=== PATIENT | male | born 1970 | race Caucasian/White ===

== ENCOUNTER 2016-03-31 13:12 | Emergency (ER) | payer SELFPAY ==
[~2016-03-31] VITALS: Ht 185.4 cm; Wt 125.0 kg
[~2016-03-31 13:12] MED LIST changes: -ASP81CT PO; -FAMO-119 PO; -FRSM40T PO; -GLIP5TAB13 PO; -MAG AL; -MAG360OR57 PO; -METF850T2 PO; -METO25TA60 PO; -OMEP20TA33 PO; -POTA-57 PO; -POTA20TA15 PO; -SPRN25T PO; -SULF1TAB35 PO
[2016-03-31] MEDS ORDERED: SODIUM CHLORIDE FLUSH 10 ML SYR IV PRN (13:25)
[2016-03-31] MEDS ORDERED: SODIUM CHLORIDE 250 ML IV PRN (13:25)
[2016-03-31] MEDS ORDERED: SODIUM CHLORIDE FLUSH 3 ML SYR IV PRN (13:25)
[2016-03-31] MEDS ORDERED: ASPIRIN 81 MG CHEW (CHILDREN'S ASA) PO ONE (13:25)
[2016-03-31 13:34] VITALS: BP 117/86
[2016-03-31 13:37] LABS: BASOPHILS % (AUTO) 1 % (0-2); EOSINOPHILS # (AUTO) 0.1 10^3uL; EOSINOPHILS % (AUTO) 1 % (0-4); LYMPHOCYTES # (AUTO) 1.7 X10^3; MEAN CORPUSCULAR HEMOGLOBIN 28.8 PG (26.0-34.0); MEAN CORPUSCULAR VOLUME 87 FL (80-100); MEAN PLATELET VOLUME 10.4 FL (6.0-9.5); MONOCYTES # (AUTO) 0.9 X10^3; MONOCYTES % (AUTO) 9 % (3-11); NEUTROPHILS # (AUTO) 6.6 X10^3; NEUTROPHILS % (AUTO) 70 % (51-67); PLATELET COUNT 310 10^3uL (150-450); WHITE BLOOD COUNT 9.37 10^3uL (4.0-11.0)
[2016-03-31 13:48] LABS: ALBUMIN 3.4 g/dL (3.4-5.0); ALKALINE PHOSPHATASE 193 U/L (38-126); ANION GAP 14.8 MEQ/L (3-15); BUN/CREATININE RATIO 17 (10-20); CALCULATED IONIZED CALCIUM 3.8 mg/dL (3.8-4.6); CREATINE KINASE 84 U/L (55-170); MAGNESIUM* 1.8 mg/dL (1.6-2.3); TOTAL PROTEIN 6.8 g/dL (6.4-8.5)
[2016-03-31] MEDS ORDERED: METO25TA60 PO (13:51)
[2016-03-31] MEDS ORDERED: GLIP5TAB13 PO (13:51)
[2016-03-31 14:41] LABS: AMPHETAMINE SCREEN, URINE Negative (Negative); CANNABINOID SCREEN, URINE Positive (Negative); METHAMPHETAMINE SCREEN URINE S NEGATIVE (NEGATIVE); OPIATE SCREEN URINE Negative (Negative)
[2016-03-31 14:42] LABS: PROPOXYPHENE STAT NEGATIVE (NEGATIVE)
--- NOTE | 2016-03-31 15:01 | Diagnostic Imaging Report ---
INDICATION: Shortness of breath. COMPARISON: None available. TECHNIQUE: Single frontal radiograph of the chest dated March 31, 2016. FINDINGS: The cardiac silhouette is significantly enlarged. There is, however, no significant pulmonary vascular congestion. The lungs are clear of focal pulmonary opacity. No pleural effusion. No pneumothorax. No acute osseous abnormality. IMPRESSION: Cardiomegaly without overt congestive heart failure or additional superimposed acute cardiopulmonary abnormality. Dictated by: Dictated on workstation # [id number]
--- NOTE | 2016-03-31 16:06 | Diagnostic Imaging Report ---
PROCEDURE: CT angiography of the chest with contrast. TECHNIQUE: Multiple contiguous axial images were obtained through the chest after uneventful bolus administration of intravenous contrast. Reconstructed CTA MIP acquisitions were also performed. INDICATION: Shortness of breath. COMPARISON: None. FINDINGS: There is mild cardiac enlargement without pericardial effusion. There is no pulmonary embolism or obvious acute aortic pathology. There is a small pleural-based nodule in the left upper lobe, measuring approximately 12 mm. This could be inflammatory or neoplastic. The remainder of the left lung is clear. There is a moderate-sized right-sided effusion with dependent atelectasis. No lymphadenopathy is seen. There is upper quadrant abdominal ascites, bilaterally. This is incompletely evaluated. Osseous structures are grossly unremarkable. IMPRESSION: 1. No pulmonary embolism identified. 2. Pleural-based nodule in the left upper lobe. Recommend three month followup. 3. Large right pleural effusion. 4. Partially visualized upper quadrant abdominal ascites. Dictated by: Dictated on workstation # [id number]
[2016-03-31] MEDS ORDERED: FUROSEMIDE 40 MG/4 ML (LASIX) VIAL IV ONE (17:15)
[2016-03-31] MEDS ORDERED: FRSM40T PO (18:22)
[2016-03-31] MEDS ORDERED: POTA-57 PO (18:22)
--- NOTE | 2016-03-31 19:00 | NUR ---
Law Enforcement here for pt, took pt out in handcuffs.
[2016-04-02] MEDS ORDERED: MAG AL (22:19)
[2016-04-02] MEDS ORDERED: POTA20TA15 PO (22:19)
[2016-04-02] MEDS ORDERED: FURO40TA4 PO (22:19)
[2016-04-02] MEDS ORDERED: OMEP20TA33 PO (22:19)
[2016-04-02] MEDS ORDERED: FAMO-119 PO (22:19)
[2016-04-03] MEDS ORDERED: MAG360OR57 PO (14:56)
[2016-04-03] MEDS ORDERED: METF850T2 PO (14:56)
[2016-04-08] MEDS ORDERED: ASP81CT PO (11:58)
[2016-04-08] MEDS ORDERED: SPRN25T PO (11:58)
[2016-04-08] MEDS ORDERED: GLIP5TAB13 PO (11:58)
[2016-04-08] MEDS ORDERED: FURO40TA4 PO (11:58)
[2016-04-08] MEDS ORDERED: POTA20TA15 PO (12:35)
[2016-04-08] MEDS ORDERED: METF850T2 PO (12:35)
[2016-04-08] MEDS ORDERED: SULF1TAB35 PO (12:35)
[2016-04-08] MEDS ORDERED: LISI-594 PO (12:35)
== END 2016-03-31 19:00 | disposition home or self-care (01) ==
LOC: EDBD 13:12 → EDUNIT# 13:12 → ED 13:37
DX: I50.9 Heart failure, unspecified (principal)
CPT/HCPCS: 36415; 71010; 71275; 80053; 80307; 80320; 82550; 82553; 83735; 83880; 84484; 85025; 85379; 85610; 85730; 86140; 93005; 96374; 99285; J1940; Q9967; 99284

== ENCOUNTER → 2016-03-31 | Outpatient (CLI) | payer SELFPAY ==
[~2016-03-31] MED LIST: ASP81CT PO; ASPI-345 PO; CARV6.25 PO; ENOX150D SQ; FAMO-119 PO; FRSM40T PO; FURO40TA4 PO; GLIP5TAB13 PO; LISI-594 PO; MAG AL; MAG360OR57 PO; METF850T2 PO; METO25TA60 PO; NFMET1000 PO; OMEP20TA33 PO; POTA-57 PO; POTA20TA15 PO; SPRN25T PO; SULF1TAB35 PO; WARF4TAB PO; [UNRECOGNIZED DRUG - CODE] PO
== END ==
LOC: EMS 13:10
PROVIDERS: ATTEND Emergency Medicine
DX: I50.9 Heart failure, unspecified (principal); R06.00 Dyspnea, unspecified

== ENCOUNTER 2016-04-02 17:18 | Inpatient (IN) | payer SELFPAY ==
[~2016-04-02] VITALS: Ht 185.4 cm; Wt 118.2 kg
[2016-04-02] MEDS ORDERED: ONDANSETRON 4 MG (ZOFRAN) ORAL DISSOLVE TAB PO ONE (17:35)
[2016-04-02] MEDS ORDERED: GI COCKTAIL 55 ML UDC PO ONE (17:35)
[2016-04-02] MEDS ORDERED: MAG HYDROX/AL HYDROX/SIMETH 400-400-40/5 ML (MAG-AL PLUS XS) 30 ML UDC ONE (17:41)
[2016-04-02] MEDS ORDERED: BELLADONNA/PHENOBARBITAL ELIXIR (DONNATAL) 10 ML UDC ONE (17:41)
[2016-04-02] MEDS ORDERED: LIDOCAINE 2% VISCOUS 20ML UDC PO ONE (17:41)
[2016-04-02 17:56] LABS: BASOPHILS % (AUTO) 0 % (0-2); EOSINOPHILS # (AUTO) 0.1 10^3uL; EOSINOPHILS % (AUTO) 1 % (0-4); LYMPHOCYTES # (AUTO) 1.4 X10^3; MEAN CORPUSCULAR HEMOGLOBIN 28.9 PG (26.0-34.0); MEAN CORPUSCULAR HGB CONC 33.5 g/dL (31.0-37.0); MEAN CORPUSCULAR VOLUME 86 FL (80-100); MEAN PLATELET VOLUME 10.4 FL (6.0-9.5); MONOCYTES % (AUTO) 10 % (3-11); NEUTROPHILS # (AUTO) 7.9 X10^3; NEUTROPHILS % (AUTO) 76 % (51-67); PLATELET COUNT 309 10^3uL (150-450); WHITE BLOOD COUNT 10.46 10^3uL (4.0-11.0)
[2016-04-02 18:09] LABS: ALBUMIN 3.4 g/dL (3.4-5.0); ANION GAP 15.5 MEQ/L (3-15); CALCULATED IONIZED CALCIUM 3.8 mg/dL (3.8-4.6); TOTAL PROTEIN 6.7 g/dL (6.4-8.5)
[2016-04-02] MEDS ORDERED: HYDROmorphone 1 MG/ML (DILAUDID) SYRINGE IV ONE (19:55)
[2016-04-02] MEDS ORDERED: meTOprolol TARTRATE 25 MG (LOPRESSOR) TABLET PO SCH (21:20)
[2016-04-02 21:36] VITALS: BP 113/81
[2016-04-02] MEDS ORDERED: DEXTROSE 50% 25 GM/50 ML SYRINGE IV PRN (22:50)
[2016-04-02] MEDS ORDERED: FUROSEMIDE 40 MG/4 ML (LASIX) VIAL IV ONE (22:50)
[2016-04-02] MEDS ORDERED: GLUCAGON EMERGENCY 1 MG/KIT IM PRN (22:50)
[2016-04-02] MEDS ORDERED: DEXTROSE ORAL GEL (GLUTOSE 40%) 15 GM TUBE PO PRN (22:50)
[2016-04-02] MEDS: SODIUM CHLORIDE FLUSH 10 ML SYR IV PRN ×2 (23:40→23:47)
[2016-04-02 23:57] VITALS: BP 113/81
[2016-04-03] MEDS: SODIUM CHLORIDE FLUSH 10 ML SYR IV PRN ×3 (00:03→04:20)
[2016-04-03] MEDS: HYDROmorphone 1 MG/ML (DILAUDID) SYRINGE IV PRN ×3 (00:03→14:27)
[2016-04-03] MEDS: ONDANSETRON 2 MG/ML (Z0FRAN) 2 ML VIAL IV PRN ×2 (04:06→13:10)
[2016-04-03 04:11] VITALS: BP 102/72
[2016-04-03 06:28] LABS: BASOPHILS % (AUTO) 0 % (0-2); EOSINOPHILS # (AUTO) 0.1 10^3uL; EOSINOPHILS % (AUTO) 1 % (0-4); LYMPHOCYTES # (AUTO) 1.3 X10^3; MEAN CORPUSCULAR HEMOGLOBIN 28.8 PG (26.0-34.0); MEAN CORPUSCULAR HGB CONC 33.2 g/dL (31.0-37.0); MEAN CORPUSCULAR VOLUME 87 FL (80-100); MEAN PLATELET VOLUME 10.7 FL (6.0-9.5); MONOCYTES # (AUTO) 0.9 X10^3; MONOCYTES % (AUTO) 12 % (3-11); NEUTROPHILS # (AUTO) 5.6 X10^3; NEUTROPHILS % (AUTO) 70 % (51-67); PLATELET COUNT 254 10^3uL (150-450)
[2016-04-03 06:45] LABS: ANION GAP 14.3 MEQ/L (3-15); CALCULATED IONIZED CALCIUM 3.7 mg/dL (3.8-4.6); TOTAL PROTEIN 6.3 g/dL (6.4-8.5)
[2016-04-03] MEDS: SUCRALFATE 1 GM (CARAFATE) TAB PO SCH ×4 (06:47→20:21)
[2016-04-03] MEDS: INSULIN LISPRO 1 UNIT/0.01 ML (HUMALOG) DOSE SC SCH ×4 (06:47→21:00)
[2016-04-03 07:51] VITALS: BP 103/73
[2016-04-03] MEDS: meTOprolol TARTRATE 25 MG (LOPRESSOR) TABLET PO SCH ×2 (08:10→18:04)
[2016-04-03] MEDS: metFORMIN 1000 MG (GLUCOPHAGE) TABLET PO SCH ×2 (08:11→18:04)
[2016-04-03] MEDS: glipiZIDE 5 MG (GLUCOTROL) TAB PO SCH ×2 (08:27→18:04)
[2016-04-03] MEDS ORDERED: FONDAPARINUX SODIUM 2.5 MG/0.5 ML SC SCH (09:00)
[2016-04-03] MEDS: SODIUM CHLORIDE FLUSH 3 ML SYR IV PRN ×4 (09:22→18:04)
[2016-04-03] MEDS: ENOXAPARIN 40 MG/0.4 ML (LOVENOX) SYR SC SCH (09:22)
[2016-04-03] MEDS: lisINopril 5 MG (PRINIVIL) TABLET PO SCH (09:22)
[2016-04-03] MEDS: PANTOPRAZOLE 40 MG (PROTONIX) TAB PO SCH (09:22)
[2016-04-03 11:40] VITALS: BP 107/70
[2016-04-03] MEDS ORDERED: FUROSEMIDE 100 MG/10 ML (LASIX) VIAL IV ONE (14:00)
[2016-04-03] MEDS ORDERED: METOLAZONE 2.5 MG (ZAROXOLYN) TAB PO ONE (14:00)
[2016-04-03 14:05] LABS: LIPASE* 55 U/L (23-300)
[2016-04-03 14:07] LABS: AMYLASE* < 30 U/L (25-115)
[2016-04-03 15:25] VITALS: BP 116/85
[2016-04-03 15:57] LABS: CLARITY,URINE Clear; COLOR,URINE Amber; GLUCOSE, URINE (UA) Negative (Negative); LEUKOCYTE ESTERASE ,URINE Negative (Negative)
[2016-04-03 15:58] LABS: BILIRUBIN,URINE 1+ (Negative)
[2016-04-03 16:07] LABS: URINE CENTRIFUGED VOLUME 12 mL
[2016-04-03 16:08] LABS: RBC,URINE 0-2 /HPF
[2016-04-03] MEDS: ONDANSETRON 2 MG/ML (Z0FRAN) 2 ML VIAL IV SCH ×2 (18:04→23:48)
[2016-04-04] MEDS: HYDROmorphone 1 MG/ML (DILAUDID) SYRINGE IV PRN ×3 (00:12→17:23)
[2016-04-04 00:19] VITALS: BP 126/98
[2016-04-04] MEDS: SUCRALFATE 1 GM (CARAFATE) TAB PO SCH ×4 (06:29→20:47)
[2016-04-04] MEDS: ONDANSETRON 2 MG/ML (Z0FRAN) 2 ML VIAL IV SCH ×4 (06:29→23:37)
[2016-04-04 06:41] LABS: BASOPHILS % (AUTO) 0 % (0-2); EOSINOPHILS # (AUTO) 0.1 10^3uL; EOSINOPHILS % (AUTO) 1 % (0-4); LYMPHOCYTES # (AUTO) 1.5 X10^3; MEAN CORPUSCULAR HEMOGLOBIN 28.8 PG (26.0-34.0); MEAN CORPUSCULAR VOLUME 87 FL (80-100); MEAN PLATELET VOLUME 10.8 FL (6.0-9.5); MONOCYTES % (AUTO) 10 % (3-11); NEUTROPHILS # (AUTO) 7.1 X10^3; NEUTROPHILS % (AUTO) 73 % (51-67); PLATELET COUNT 257 10^3uL (150-450); WHITE BLOOD COUNT 9.68 10^3uL (4.0-11.0)
[2016-04-04 07:15] LABS: ANION GAP 13.9 MEQ/L (3-15); CALCULATED IONIZED CALCIUM 3.9 mg/dL (3.8-4.6); MAGNESIUM* 1.9 mg/dL (1.6-2.3); TOTAL PROTEIN 6.2 g/dL (6.4-8.5)
[2016-04-04] MEDS: INSULIN LISPRO 1 UNIT/0.01 ML (HUMALOG) DOSE SC SCH ×4 (07:25→20:44)
[2016-04-04 07:30] VITALS: BP 92/72
[2016-04-04] MEDS: glipiZIDE 5 MG (GLUCOTROL) TAB PO SCH (08:00)
[2016-04-04] MEDS: metFORMIN 1000 MG (GLUCOPHAGE) TABLET PO SCH (08:00)
[2016-04-04 08:30] VITALS: BP 105/80
[2016-04-04] MEDS ORDERED: METOLAZONE 2.5 MG (ZAROXOLYN) TAB PO SCH (08:30)
[2016-04-04] MEDS ORDERED: FUROSEMIDE 100 MG/10 ML (LASIX) VIAL IV SCH (09:00)
[2016-04-04] MEDS: SODIUM CHLORIDE FLUSH 10 ML SYR IV PRN ×2 (09:15→23:37)
[2016-04-04] MEDS: ENOXAPARIN 40 MG/0.4 ML (LOVENOX) SYR SC SCH (09:15)
[2016-04-04] MEDS: PANTOPRAZOLE 40 MG (PROTONIX) TAB PO SCH (09:16)
[2016-04-04] MEDS: meTOprolol TARTRATE 25 MG (LOPRESSOR) TABLET PO SCH ×2 (09:56→17:21)
[2016-04-04] MEDS: ASPIRIN 81 MG CHEW (CHILDREN'S ASA) PO SCH (09:56)
[2016-04-04] MEDS: SODIUM CHLORIDE FLUSH 3 ML SYR IV PRN ×3 (09:57→15:07)
[2016-04-04] MEDS: lisINopril 5 MG (PRINIVIL) TABLET PO SCH (09:57)
[2016-04-04] MEDS ORDERED: PROMETHAZINE HCL INJ 12.5 MG in SODIUM CHLORIDE 25 ML IV PRN (11:50)
[2016-04-04] MEDS: SPIRONOLACTONE 25 MG (ALDACTONE) TABLET PO SCH (12:30)
[2016-04-04] MEDS: METOLAZONE 2.5 MG (ZAROXOLYN) TAB PO SCH (14:32)
[2016-04-04] MEDS: FUROSEMIDE 100 MG/10 ML (LASIX) VIAL IV SCH (15:07)
[2016-04-04 16:09] VITALS: BP 100/77
[2016-04-05 00:04] VITALS: BP 96/60
[2016-04-05] MEDS: HYDROmorphone 1 MG/ML (DILAUDID) SYRINGE IV PRN (02:13)
[2016-04-05] MEDS: SODIUM CHLORIDE FLUSH 10 ML SYR IV PRN (02:13)
[2016-04-05] MEDS: INSULIN LISPRO 1 UNIT/0.01 ML (HUMALOG) DOSE SC SCH ×4 (06:39→20:59)
[2016-04-05] MEDS: SUCRALFATE 1 GM (CARAFATE) TAB PO SCH ×4 (06:39→20:58)
[2016-04-05] MEDS: ONDANSETRON 2 MG/ML (Z0FRAN) 2 ML VIAL IV SCH ×3 (06:39→17:44)
[2016-04-05] MEDS: SODIUM CHLORIDE FLUSH 3 ML SYR IV PRN (06:39)
[2016-04-05 06:53] LABS: ALBUMIN 3.4 g/dL (3.4-5.0); ANION GAP 14.1 MEQ/L (3-15); MAGNESIUM* 1.9 mg/dL (1.6-2.3); PHOSPHORUS 4.5 mg/dL (2.4-4.9)
[2016-04-05 07:37] VITALS: BP 111/79
[2016-04-05] MEDS: SPIRONOLACTONE 25 MG (ALDACTONE) TABLET PO SCH (08:23)
[2016-04-05] MEDS: PANTOPRAZOLE 40 MG (PROTONIX) TAB PO SCH (08:23)
[2016-04-05] MEDS: meTOprolol TARTRATE 25 MG (LOPRESSOR) TABLET PO SCH ×2 (08:23→17:43)
[2016-04-05] MEDS: METOLAZONE 2.5 MG (ZAROXOLYN) TAB PO SCH ×2 (08:23→13:47)
[2016-04-05] MEDS: lisINopril 5 MG (PRINIVIL) TABLET PO SCH (08:23)
[2016-04-05] MEDS: ASPIRIN 81 MG CHEW (CHILDREN'S ASA) PO SCH (08:23)
[2016-04-05] MEDS: ENOXAPARIN 40 MG/0.4 ML (LOVENOX) SYR SC SCH (08:24)
[2016-04-05] MEDS: FUROSEMIDE 100 MG/10 ML (LASIX) VIAL IV SCH ×2 (09:33→14:53)
[2016-04-05] MEDS: POTASSIUM CHLORIDE ER 20 MEQ TABLET PO SCH (13:47)
[2016-04-05 15:52] VITALS: BP 105/77
[2016-04-05 19:46] VITALS: BP 92/62
[2016-04-06 00:06] VITALS: BP 91/72
[2016-04-06 04:40] VITALS: BP 91/61
[2016-04-06] MEDS: ONDANSETRON 2 MG/ML (Z0FRAN) 2 ML VIAL IV SCH ×4 (06:00→17:50)
[2016-04-06] MEDS: INSULIN LISPRO 1 UNIT/0.01 ML (HUMALOG) DOSE SC SCH ×4 (06:14→21:37)
[2016-04-06] MEDS: SUCRALFATE 1 GM (CARAFATE) TAB PO SCH ×4 (06:21→21:36)
[2016-04-06 06:35] LABS: ALBUMIN 3.1 g/dL (3.4-5.0); ANION GAP 10.7 MEQ/L (3-15); CALCULATED IONIZED CALCIUM 3.8 mg/dL (3.8-4.6); TOTAL PROTEIN 6.4 g/dL (6.4-8.5)
[2016-04-06 08:17] VITALS: BP 113/73
[2016-04-06] MEDS: SPIRONOLACTONE 25 MG (ALDACTONE) TABLET PO SCH (09:01)
[2016-04-06] MEDS: lisINopril 5 MG (PRINIVIL) TABLET PO SCH (09:01)
[2016-04-06] MEDS: ASPIRIN 81 MG CHEW (CHILDREN'S ASA) PO SCH (09:01)
[2016-04-06] MEDS: METOLAZONE 2.5 MG (ZAROXOLYN) TAB PO SCH ×2 (09:01→13:57)
[2016-04-06] MEDS: meTOprolol TARTRATE 25 MG (LOPRESSOR) TABLET PO SCH ×2 (09:01→17:50)
[2016-04-06] MEDS: POTASSIUM CHLORIDE ER 20 MEQ TABLET PO SCH (09:01)
[2016-04-06] MEDS: PANTOPRAZOLE 40 MG (PROTONIX) TAB PO SCH (09:01)
[2016-04-06] MEDS: ENOXAPARIN 40 MG/0.4 ML (LOVENOX) SYR SC SCH (09:02)
[2016-04-06] MEDS: FUROSEMIDE 100 MG/10 ML (LASIX) VIAL IV SCH ×2 (09:40→14:38)
[2016-04-06] MEDS: SODIUM CHLORIDE FLUSH 10 ML SYR IV PRN ×4 (09:40→17:50)
[2016-04-06 11:59] VITALS: BP 89/65
[2016-04-06] MEDS ORDERED: SCOPOLAMINE 1.5 MG (TRANSDERM-SCOP) PATCH TD ONE (12:25)
[2016-04-06] MEDS: MUPIROCIN 2% OINT 22 GM (BACTROBAN) TUBE TOP SCH ×3 (13:58→21:00)
[2016-04-06 15:56] VITALS: BP 96/69
[2016-04-06 19:59] VITALS: BP 96/60
[2016-04-07] VITALS (8 sets, daily range): BP systolic 86–116; BP diastolic 54–75
[2016-04-07] MEDS: SUCRALFATE 1 GM (CARAFATE) TAB PO SCH ×4 (05:47→21:28)
[2016-04-07] MEDS: ONDANSETRON 2 MG/ML (Z0FRAN) 2 ML VIAL IV SCH ×3 (05:52→11:52)
[2016-04-07] MEDS: INSULIN LISPRO 1 UNIT/0.01 ML (HUMALOG) DOSE SC SCH ×4 (05:52→21:29)
[2016-04-07 06:32] LABS: BASOPHILS % (AUTO) 0 % (0-2); EOSINOPHILS # (AUTO) 0.2 10^3uL; EOSINOPHILS % (AUTO) 2 % (0-4); LYMPHOCYTES # (AUTO) 1.5 X10^3; MEAN CORPUSCULAR HEMOGLOBIN 28.5 PG (26.0-34.0); MEAN CORPUSCULAR HGB CONC 33.4 g/dL (31.0-37.0); MEAN CORPUSCULAR VOLUME 85 FL (80-100); MEAN PLATELET VOLUME 10.6 FL (6.0-9.5); MONOCYTES # (AUTO) 1.1 X10^3; MONOCYTES % (AUTO) 13 % (3-11); NEUTROPHILS # (AUTO) 5.8 X10^3; NEUTROPHILS % (AUTO) 67 % (51-67); PLATELET COUNT 247 10^3uL (150-450); WHITE BLOOD COUNT 8.63 10^3uL (4.0-11.0)
[2016-04-07 07:06] LABS: ALBUMIN 3.1 g/dL (3.4-5.0); ANION GAP 10.7 MEQ/L (3-15); MAGNESIUM* 1.7 mg/dL (1.6-2.3); PHOSPHORUS 4.1 mg/dL (2.4-4.9)
[2016-04-07] MEDS: SPIRONOLACTONE 25 MG (ALDACTONE) TABLET PO SCH (08:22)
[2016-04-07] MEDS: POTASSIUM CHLORIDE ER 20 MEQ TABLET PO SCH (08:22)
[2016-04-07] MEDS: meTOprolol TARTRATE 25 MG (LOPRESSOR) TABLET PO SCH ×2 (08:23→17:17)
[2016-04-07] MEDS: METOLAZONE 2.5 MG (ZAROXOLYN) TAB PO SCH ×2 (08:23→13:36)
[2016-04-07] MEDS: ASPIRIN 81 MG CHEW (CHILDREN'S ASA) PO SCH (08:23)
[2016-04-07] MEDS: lisINopril 5 MG (PRINIVIL) TABLET PO SCH (08:23)
[2016-04-07] MEDS: PANTOPRAZOLE 40 MG (PROTONIX) TAB PO SCH (08:23)
[2016-04-07] MEDS: ENOXAPARIN 40 MG/0.4 ML (LOVENOX) SYR SC SCH (08:25)
[2016-04-07] MEDS: MUPIROCIN 2% OINT 22 GM (BACTROBAN) TUBE TOP SCH ×4 (08:26→21:00)
[2016-04-07] MEDS: FUROSEMIDE 100 MG/10 ML (LASIX) VIAL IV SCH (09:08)
[2016-04-07] MEDS: POTASSIUM CHLORIDE ER 20 MEQ TABLET PO ONE ×2 (11:46→11:52)
[2016-04-07] MEDS ORDERED: ONDANSETRON 4 MG (ZOFRAN) TABLET PO PRN (15:25)
[2016-04-07] MEDS: FUROSEMIDE 80 MG (LASIX) TABLET PO SCH (15:35)
[2016-04-08 00:06] VITALS: BP 139/72
[2016-04-08 04:18] VITALS: BP 128/92
[2016-04-08 06:01] LABS: BASOPHILS % (AUTO) 0 % (0-2); EOSINOPHILS # (AUTO) 0.2 10^3uL; EOSINOPHILS % (AUTO) 2 % (0-4); LYMPHOCYTES # (AUTO) 1.6 X10^3; MEAN CORPUSCULAR HEMOGLOBIN 28.4 PG (26.0-34.0); MEAN CORPUSCULAR HGB CONC 33.1 g/dL (31.0-37.0); MEAN CORPUSCULAR VOLUME 86 FL (80-100); MONOCYTES # (AUTO) 1.1 X10^3; MONOCYTES % (AUTO) 15 % (3-11); NEUTROPHILS # (AUTO) 4.9 X10^3; NEUTROPHILS % (AUTO) 62 % (51-67); PLATELET COUNT 281 10^3uL (150-450); WHITE BLOOD COUNT 7.88 10^3uL (4.0-11.0)
[2016-04-08 06:11] LABS: ALBUMIN 3.5 g/dL (3.4-5.0); ANION GAP 13.4 MEQ/L (3-15); MAGNESIUM* 1.8 mg/dL (1.6-2.3); PHOSPHORUS 4.1 mg/dL (2.4-4.9)
[2016-04-08] MEDS: INSULIN LISPRO 1 UNIT/0.01 ML (HUMALOG) DOSE SC SCH ×2 (06:26→12:53)
[2016-04-08 07:39] VITALS: BP 101/70
[2016-04-08] MEDS: SUCRALFATE 1 GM (CARAFATE) TAB PO SCH ×2 (07:54→12:53)
[2016-04-08] MEDS: ASPIRIN 81 MG CHEW (CHILDREN'S ASA) PO SCH (08:24)
[2016-04-08] MEDS: POTASSIUM CHLORIDE ER 20 MEQ TABLET PO SCH (08:25)
[2016-04-08] MEDS: PANTOPRAZOLE 40 MG (PROTONIX) TAB PO SCH (08:25)
[2016-04-08] MEDS: SPIRONOLACTONE 25 MG (ALDACTONE) TABLET PO SCH (08:25)
[2016-04-08] MEDS: METOLAZONE 2.5 MG (ZAROXOLYN) TAB PO SCH (08:25)
[2016-04-08] MEDS: lisINopril 5 MG (PRINIVIL) TABLET PO SCH (08:25)
[2016-04-08] MEDS: meTOprolol TARTRATE 25 MG (LOPRESSOR) TABLET PO SCH (08:25)
[2016-04-08] MEDS: ENOXAPARIN 40 MG/0.4 ML (LOVENOX) SYR SC SCH (08:26)
[2016-04-08] MEDS: MUPIROCIN 2% OINT 22 GM (BACTROBAN) TUBE TOP SCH ×2 (08:28→12:56)
[2016-04-08] MEDS: FUROSEMIDE 80 MG (LASIX) TABLET PO SCH (09:01)
[2016-04-08 11:19] VITALS: BP 117/73
[2016-04-08] MEDS ORDERED: LMX 4 KIT (LIDOCAINE 4% 5 GM TUBE/TRANSPARENT DRESSING) TOP ONE (12:35)
[2016-04-08] MEDS ORDERED: HYDROmorphone 1 MG/ML (DILAUDID) SYRINGE IV ONE (13:30)
== END 2016-04-08 16:00 | disposition home or self-care (01) | DRG 292 ==
LOC: EDUNIT# 17:18 → ED 17:19 → UNDOADMIN 20:31 → UNDOADMOB 20:31 → INTOOBSV 20:31 → MED/SURG 20:31 → OBSVTOIN 20:31 → MED/SURG 20:31 → UNDODISOB 04-08 16:00 → UNDODISIN 04-08 16:00
PROVIDERS: ADMIT Family Medicine; ATTEND Family Medicine
PROC: 0H9KXZZ Drainage of Right Lower Leg Skin, External Approach (ICD-10-PCS; principal; 2016-04-08)
DX: I11.0 Hypertensive heart disease with heart failure (principal); R18.8 Other ascites; E87.1 Hypo-osmolality and hyponatremia; L02.415 Cutaneous abscess of right lower limb; I50.43 Acute on chronic combined systolic (congestive) and diastolic (congestive) heart failure; R10.12 Left upper quadrant pain; K52.9 Noninfective gastroenteritis and colitis, unspecified; E11.65 Type 2 diabetes mellitus with hyperglycemia; B19.20 Unspecified viral hepatitis C without hepatic coma; F15.10 Other stimulant abuse, uncomplicated; R91.8 Other nonspecific abnormal finding of lung field; F41.9 Anxiety disorder, unspecified; Z86.718 Personal history of other venous thrombosis and embolism; Z86.711 Personal history of pulmonary embolism
CPT/HCPCS: 36415; 74022; 76705; 80053; 80069; 81003; 81015; 82150; 83690; 83735; 83880; 83930; 84300; 85025; 85610; 86140; 93005; 99282; 99283

== ENCOUNTER → 2016-04-02 | Outpatient (CLI) | payer SELFPAY ==
[~2016-04-02] MED LIST changes: +ASP81CT PO; +FAMO-119 PO; +FRSM40T PO; +GLIP5TAB13 PO; +MAG AL; +MAG360OR57 PO; +METF850T2 PO; +METO25TA60 PO; +OMEP20TA33 PO; +POTA-57 PO; +POTA20TA15 PO; +SPRN25T PO; +SULF1TAB35 PO
== END ==
LOC: EMS 06:40
PROVIDERS: ATTEND Emergency Medicine
DX: R10.11 Right upper quadrant pain (principal); R10.12 Left upper quadrant pain

== ENCOUNTER → 2016-04-02 | Emergency (ER) | payer SELFPAY ==
[~2016-04-02] VITALS: Ht 185.4 cm; Wt 125.0 kg
[~2016-04-02] MED LIST changes: +BELLADONNA/PHENOBARBITAL ELIXIR (DONNATAL) 10 ML UDC ONE; +FAMOTIDINE IV 20 MG in SODIUM CHLORIDE VIAL (PF) 10 ML IV ONE; +GI COCKTAIL 55 ML UDC PO ONE; +LIDOCAINE 2% VISCOUS 20ML UDC PO ONE; +MAG HYDROX/AL HYDROX/SIMETH 400-400-40/5 ML (MAG-AL PLUS XS) 30 ML UDC ONE; +ONDANSETRON 2 MG/ML (Z0FRAN) 2 ML VIAL IV ONE; +PANTOPRAZOLE IV 40 MG in SODIUM CHLORIDE FLUSH 10 ML IV ONE; +SODIUM CHLORIDE 250 ML IV SCH; +SODIUM CHLORIDE FLUSH 10 ML SYR IV PRN; +SODIUM CHLORIDE FLUSH 3 ML SYR IV PRN
[2016-04-02 06:55] VITALS: BP 122/88
[2016-04-02 07:59] LABS: BASOPHILS % (AUTO) 1 % (0-2); EOSINOPHILS # (AUTO) 0.1 10^3uL; EOSINOPHILS % (AUTO) 1 % (0-4); LYMPHOCYTES # (AUTO) 1.1 X10^3; MEAN CORPUSCULAR HEMOGLOBIN 28.5 PG (26.0-34.0); MEAN CORPUSCULAR HGB CONC 33.1 g/dL (31.0-37.0); MEAN CORPUSCULAR VOLUME 86 FL (80-100); MEAN PLATELET VOLUME 10.7 FL (6.0-9.5); MONOCYTES # (AUTO) 0.8 X10^3; MONOCYTES % (AUTO) 10 % (3-11); NEUTROPHILS # (AUTO) 6.4 X10^3; NEUTROPHILS % (AUTO) 76 % (51-67); PLATELET COUNT 265 10^3uL (150-450); WHITE BLOOD COUNT 8.45 10^3uL (4.0-11.0)
[2016-04-02 08:07] LABS: ALBUMIN 3.2 g/dL (3.4-5.0); ALKALINE PHOSPHATASE 177 U/L (38-126); ANION GAP 16.3 MEQ/L (3-15); BUN/CREATININE RATIO 20 (10-20); CALCULATED IONIZED CALCIUM 3.9 mg/dL (3.8-4.6); LIPASE* 56 U/L (23-300); TOTAL PROTEIN 6.6 g/dL (6.4-8.5)
[2016-04-02 08:08] LABS: AMYLASE* < 30 U/L (25-115)
--- NOTE | 2016-04-02 08:19 | Diagnostic Imaging Report ---
INDICATION: Abdominal pain. Abdominal series performed in the routine fashion with a frontal chest radiograph and supine upright abdominal films. FINDINGS: Frontal views of the chest shows cardiomegaly. There is no acute infiltrate or pneumothorax or pleural fluid. There is no free intraperitoneal air. The abdominal bowel gas pattern is unremarkable. IMPRESSION: Cardiomegaly. No sign of free air or bowel obstruction. No acute pulmonary infiltrate. Dictated by: Dictated on workstation # [id number]
--- NOTE | 2016-04-02 08:46 | NUR ---
Patient given second cup of water - still denies need to void. Urinal and wipe placed at bedside. Instructed patient on obtaining a clean catch sample - verbalizes understanding. Call light in reach. No other needs at this time.
[2016-04-02 09:11] LABS: BILIRUBIN,URINE 2+ (Negative); CLARITY,URINE Clear; COLOR,URINE Orange; GLUCOSE, URINE (UA) Negative (Negative); LEUKOCYTE ESTERASE ,URINE Negative (Negative)
[2016-04-02 09:16] LABS: URINE CENTRIFUGED VOLUME 12 mL
[2016-04-02 09:18] LABS: RBC,URINE 0-2 /HPF
--- NOTE | 2016-04-02 10:51 | NUR ---
KIRILL DE LA O GAS SCRUBBER OPERATOR IN WITH PATIENT.
--- NOTE | 2016-04-02 10:59 | NUR ---
KIRILL DE LA O TALKS WITH DR MIXON STATING THAT HE DOES HAVE RESOURCES BUT WILL SUPPLY MONEY TO OBTAIN LASIX & POTASSIUM. CL
--- NOTE | 2016-04-02 11:43 | NUR ---
METAL DRESSER FRANCO MACE HERE TO TALK WITH PT. CL
== END ==
LOC: ED 06:57
DX: K29.00 Acute gastritis without bleeding (principal)
CPT/HCPCS: 36415; 74022; 80053; 81003; 81015; 82150; 83690; 85025; 86140; 86677; 96365; 96367; 96375; 99285; C9113; J2405; J3490; J7050; 99283

== ENCOUNTER 2016-04-09 23:49 | Emergency (ER) | payer SELFPAY ==
[~2016-04-09] VITALS: Ht 185.4 cm; Wt 125.0 kg
[2016-04-09] MEDS ORDERED: LORazepam 2 MG/ML (ATIVAN) 1 ML VIAL ONE (23:53)
[2016-04-09] MEDS ORDERED: LORazepam 2 MG/ML (ATIVAN) 1 ML VIAL IV ONE (23:55)
--- NOTE | 2016-04-10 01:00 | NUR ---
Pt has not been moving his right leg or arm. He has been moving his left leg and left arm A LOT. Pt is agitated but does not speak. He has been making garbled noises but nothing that makes sense. Daughter came in to see him and told us that he is estranged from the family and she is the only one who has contact with him. She states that she has never seen him this way before and she was very upset and crying. She wanted him to go to [facility] but they were full so she said [facility] was fine also. Pt was accepted at [facility].
[2016-04-10 01:02] LABS: MEAN CORPUSCULAR HEMOGLOBIN 28.4 PG (26.0-34.0); MEAN CORPUSCULAR HGB CONC 32.6 g/dL (31.0-37.0); MEAN CORPUSCULAR VOLUME 87 FL (80-100); MEAN PLATELET VOLUME 9.9 FL (6.0-9.5); PLATELET COUNT 315 10^3uL (150-450); WHITE BLOOD COUNT 14.83 10^3uL (4.0-11.0)
[2016-04-10] MEDS ORDERED: LORazepam 2 MG/ML (ATIVAN) 1 ML VIAL IV ONE ×3 (01:05→01:30)
[2016-04-10 01:12] LABS: ALBUMIN 3.9 g/dL (3.4-5.0); ALKALINE PHOSPHATASE 193 U/L (38-126); ANION GAP 19.1 MEQ/L (3-15); BUN/CREATININE RATIO 19 (10-20); CALCULATED IONIZED CALCIUM 3.6 mg/dL (3.8-4.6); TOTAL PROTEIN 7.7 g/dL (6.4-8.5)
[2016-04-10 01:35] LABS: AMPHETAMINE SCREEN, URINE Negative (Negative); CANNABINOID SCREEN, URINE Positive (Negative); METHAMPHETAMINE SCREEN URINE S NEGATIVE (NEGATIVE); OPIATE SCREEN URINE Negative (Negative); PROPOXYPHENE STAT NEGATIVE (NEGATIVE)
[2016-04-10 01:47] LABS: BAND NEUTROPHILS % 2 % (0-6); EOSINOPHILS % 0 % (0-4); LYMPHOCYTES # 0.9 #; MONOCYTES # 0.7 #; MONOCYTES % 5 % (3-11); RBC MORPH NORMAL (NORMAL); SEGMENTED NEUTROPHILS % 87 % (51-67); TOTAL CELLS COUNTED 100
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
[2016-04-10 02:45] LABS: CREATINE KINASE 290 U/L (55-170)
[2016-04-10 03:47] VITALS: BP 125/99
--- NOTE | 2016-04-10 07:07 | Diagnostic Imaging Report ---
PROCEDURE: CT abdomen and pelvis without contrast. TECHNIQUE: Multiple contiguous axial images were obtained through the abdomen and pelvis without the use of intravenous contrast. INDICATION: Altered mental status. FINDINGS: There is a small right pleural effusion layering up to a depth of less than a centimeter. Lung bases are otherwise clear. Liver appears normal. The gallbladder is present. Spleen is not enlarged. There are no pancreatic masses. Kidneys and adrenals appear normal. There is minimal calcific atherosclerosis of aorta. Small bowel is not dilated. Appendix is normal. Colon is unremarkable. Urinary bladder appears normal. IMPRESSION: Small right pleural effusion. No acute abnormality is seen in the abdomen or pelvis. I agree with preliminary interpretation. Dictated by: Dictated on workstation # [id number]
--- NOTE | 2016-04-10 07:16 | Diagnostic Imaging Report ---
INDICATION: Mental status change EXAMINATION: Portable chest 2:57 AM There is cardiomegaly with pulmonary vascular congestion. Lungs are clear. There are no effusions or pneumothoraces. IMPRESSION: Cardiomegaly with mild pulmonary venous hypertension. Dictated by: Dictated on workstation # [id number]
--- NOTE | 2016-04-10 07:17 | Diagnostic Imaging Report ---
PROCEDURE: CT cervical spine without contrast. TECHNIQUE: Multiple contiguous axial images were obtained through the cervical spine without the use of intravenous contrast. Sagittal and coronal reformations were then performed. INDICATION: Mental status change after a fall. FINDINGS: Vertebral body height and alignment appear normal. There is minimal degenerative change of the discs and uncovertebral joints in the cervical spine. There is no fracture or dislocation. There is no prevertebral soft tissue swelling. IMPRESSION: Minimal degenerative changes. No acute abnormalities seen in the cervical spine. I agree with preliminary interpretation. Dictated by: Dictated on workstation # [id number]
--- NOTE | 2016-04-10 07:38 | Diagnostic Imaging Report ---
PROCEDURE: CT head without contrast. TECHNIQUE: Multiple contiguous axial images were obtained through the brain without the use of intravenous contrast. INDICATION: Altered mental status The ventricles are normal in size, shape and position. There are no masses or hemorrhages. There are no extra-axial fluid collections. IMPRESSION: Negative CT head. I agree with preliminary interpretation. Dictated by: Dictated on workstation # [id number]
== END 2016-04-10 03:35 | disposition short-term general hospital (02) ==
LOC: ED 23:51
DX: I63.9 Cerebral infarction, unspecified (principal); I69.320 Aphasia following cerebral infarction; I69.351 Hemiplegia and hemiparesis following cerebral infarction affecting right dominant side; E11.9 Type 2 diabetes mellitus without complications; I50.9 Heart failure, unspecified
CPT/HCPCS: 36415; 70450; 71010; 72125; 74176; 80053; 80307; 80320; 82550; 82553; 83605; 83880; 84146; 84484; 85025; 85610; 93005; 96374; 96376; 99285; J2060; 93010; 99291

== ENCOUNTER → 2016-04-09 | Outpatient (CLI) | payer SELFPAY ==
[~2016-04-09] MED LIST changes: -BELLADONNA/PHENOBARBITAL ELIXIR (DONNATAL) 10 ML UDC ONE; -FAMOTIDINE IV 20 MG in SODIUM CHLORIDE VIAL (PF) 10 ML IV ONE; -GI COCKTAIL 55 ML UDC PO ONE; -LIDOCAINE 2% VISCOUS 20ML UDC PO ONE; -MAG HYDROX/AL HYDROX/SIMETH 400-400-40/5 ML (MAG-AL PLUS XS) 30 ML UDC ONE; -ONDANSETRON 2 MG/ML (Z0FRAN) 2 ML VIAL IV ONE; -PANTOPRAZOLE IV 40 MG in SODIUM CHLORIDE FLUSH 10 ML IV ONE; -SODIUM CHLORIDE 250 ML IV SCH; -SODIUM CHLORIDE FLUSH 10 ML SYR IV PRN; -SODIUM CHLORIDE FLUSH 3 ML SYR IV PRN
== END ==
LOC: EMS 23:35
PROVIDERS: ATTEND Family Medicine
DX: R41.82 Altered mental status, unspecified (principal); T68.XXXA Hypothermia, initial encounter; X31.XXXA Exposure to excessive natural cold, initial encounter

== ENCOUNTER → 2016-04-10 | Outpatient (CLI) | payer SELFPAY | LOC: EMS 03:40 | DX: I69.351 Hemiplegia and hemiparesis following cerebral infarction affecting right dominant side (principal); R47.01 Aphasia ==